=== PATIENT | female | born 1975 | race Caucasian/White ===

== ENCOUNTER → 2019-11-06 | Outpatient (CLI) | payer OTHER ==
[~2019-11-06] MED LIST: BRINTELLIX10; LASIX 20MG TABL20 MG PO; LEVAQUIN 750MG750 M1 PO; LEVOXYL0.112 MG PO; MEDROL4 MG; NORCO 325 MG-51 TAB PO; PERCOCET 325 MG1 TA2 PO; PROMETHAZINE V473 M2 PO; VENTOLIN0.09 MG IH; XANAX 1MG1 MG PO; ZITHROMAX 250M250 MG PO
== END ==
LOC: COL.RAD 09:45
DX: C73 Malignant neoplasm of thyroid gland (principal); E89.0 Postprocedural hypothyroidism; E66.9 Obesity, unspecified; Z90.89 Acquired absence of other organs

== ENCOUNTER → 2019-11-13 | Outpatient (CLI) | payer OTHER | LOC: MC.RAD 08:59 | DX: Z12.31 Encounter for screening mammogram for malignant neoplasm of breast (principal); N63.20 Unspecified lump in the left breast, unspecified quadrant ==

== ENCOUNTER 2020-10-01 15:30 | Outpatient (RCR) | payer OTHER ==
[2020-09-15 18:22] VITALS: BP 141/86; PULSE 62; TEMP 98.6
[2020-09-24 15:05] VITALS: BP 138/62; PULSE 58; TEMP 98
[~2020-10-01] VITALS: Ht 175.3 cm; Wt 116.9 kg
[2020-10-01 15:58] VITALS: BP 175/85; PULSE 83; TEMP 98.2
== END 2020-12-14 | disposition home or self-care (01) ==
LOC: EUO
DX: Z79.899 Other long term (current) drug therapy (principal)
CPT/HCPCS: J2916

== ENCOUNTER 2021-01-05 07:34 | Emergency (ER) | payer OTHER ==
[~2021-01-05] VITALS: Ht 175.3 cm; Wt 109.1 kg
[2021-01-05 07:39] VITALS: TEMP 97.8
[2021-01-05 08:51] VITALS: BP 165/104; PULSE 74
== END 2021-01-05 08:51 | disposition home or self-care (01) ==
LOC: COL.ER 07:34
DX: J06.9 Acute upper respiratory infection, unspecified (principal); F17.210 Nicotine dependence, cigarettes, uncomplicated; Z20.822 Contact with and (suspected) exposure to COVID-19

== ENCOUNTER 2021-02-06 13:50 | Outpatient (RCR) | payer OTHER ==
[~2021-02-06] VITALS: Ht 175.3 cm; Wt 117.0 kg
[2021-02-06 14:30] VITALS: BP 162/87; PULSE 75; TEMP 98.6
--- NOTE | 2021-03-25 13:20 | NUR ---
Per notes pt moved 2 weeks age and will not be here for further infusions.
== END 2021-03-25 13:21 ==
LOC: EUO 13:50 → EDSTATUS 14:00 → EUO 03-25 13:21
DX: Z79.899 Other long term (current) drug therapy (principal)
CPT/HCPCS: J1756